=== PATIENT | male | born 1985 | race African-American/Black ===

== ENCOUNTER 2017-02-15 17:30 | Inpatient (IN) | payer OTHER ==
--- NOTE | ~2017-02-15 | DS ---
Unit #: [id number] #: [id number] Patient: DAMON RODRIGUEZ [id number] [place] [address] [id number] I MR#: [id number] NAME: DAMON RODRIGUEZ ROOM: 82 Age: 31 Sex: M Admission Date: 02/15/2017 : 1985 Discharge Date: 02/18/2017 Attending Physician: Luis Felipe Mcallister M.D. [facility] DISCHARGE SUMMARY REASON FOR ADMISSION Depression. DIAGNOSTIC STUDIES LABORATORY RESULTS: Unremarkable. HOSPITAL COURSE The patient was admitted to inpatient unit on 02/15/2017 and discharged on 02/18/2017. The patient was treated on the inpatient unit with group therapy, individual therapy, and medication management. The patient responded well with the above modalities of treatment. Subsequently, the patient was discharged with a plan to follow up in outpatient program. DISCHARGE MEDICATIONS Prozac 20 mg daily for depression and Zyprexa 10 mg daily for psychosis. DISCHARGE DIAGNOSES Psychiatric: Bipolar mood disorder, not otherwise specified, currently in mixed state, F31.89. Secondary diagnosis: Deferred. Medical diagnosis: None. Stressors: Psychosocial stressors. DISCHARGE INSTRUCTIONS The patient is to follow up in outpatient clinic as per social work assistant. CONDITION ON DISCHARGE The patient is pleasant and cooperative. Denied any psychotic symptom or any suicidal ideation. PROGNOSIS Guarded. DIET AND ACTIVITY As tolerated. Dictated by... Luis Felipe Mcallister M.D. Unit #: [id number] #: [id number] Patient: DAMON RODRIGUEZ SZC/modl TD: 02/18/2017 22:28 JOB #: [id number] DISCHARGE SUMMARY Page 1 of 1 X Luis Felipe Mcallister MD X DISCHARGE SUMMARY
--- NOTE | ~2017-02-15 | PN ---
Unit #: [id number] #: [id number] Patient: DAMON TIERNEY [id number] [facility] [address] [place] [address] [id number] MR#: [id number] NAME: DAMON TIERNEY ROOM: P182 Age: 31 Sex: M Admission Date: 02/15/2017 : 1985 Attending Physician: Luis Felipe Mcallister M.D. Admitting Physician: Luis Felipe Mcallister M.D. Primary Care Physician: [facility] PROGRESS NOTES DATE OF SERVICE: 02/17/2017 DISCUSSION Damon Tierney is a 31-year-old male, seen on 02/17/2017. The patient interviewed, chart reviewed, and obtained information from nursing staff. The patient was compliant and cooperative. Mood was sad, dysphoric, flat affect, withdrawn, isolative, guarded. Tolerating medication fairly well. Complete review of systems unremarkable. MENTAL STATUS EXAMINATION General appearance, the patient dressed casually. Attention span and concentration, fair. Oriented in place and person. Mood and affect, labile. Speech, monotone. Thought process, concrete. Denied any thoughts of harming self or others or any psychotic symptom. Recent and remote memory, poor. Insight and judgment, poor. DIAGNOSES 1. Psychosis, not otherwise specified. 2. Mood disorder, not otherwise specified. ASSESSMENT AND PLAN Advised to continue with current combination of Prozac, Zyprexa, and trazodone. If needed, consider further adjustment of medication. Dictated by... Eric Malhotra/angi TD: 02/17/2017 19:02 JOB #: [id number] Unit #: [id number] #: [id number] Patient: DAMON TIERNEY [facility] PROGRESS NOTES Page 1 of 1 X Luis Felipe Mcallister MD PROGRESS NOTE
--- NOTE | ~2017-02-15 | HP ---
Unit #: [id number] #: [id number] Patient: DAMON RODRIGUEZ [id number] [place] [address] [id number] I MR#: [id number] NAME: DAMON RODRIGUEZ ROOM: P180 Age: 31 Sex: M Admission Date: 02/15/2017 : 1985 Attending Physician: Luis Felipe Mcallister M.D. Admitting Physician: Luis Felipe Mcallister M.D. Primary Care Physician: [facility] HISTORY AND PHYSICAL HISTORY OF PRESENT ILLNESS Damon is a 31 year old admitted to [facility] with depression and verbalizing wanting to hurt himself. PAST MEDICAL HISTORY Nothing significant. PAST SURGICAL HISTORY Nothing reported. ALLERGIES No known drug allergies. SOCIAL HISTORY Smokes one pack per day. Denies alcohol and illicit drug use. FAMILY HISTORY Medically noncontributory. REVIEW OF SYSTEMS CONSTITUTIONAL: No fever or chills. HEENT: Denies any sore throat, ear pain or runny nose. CARDIOVASCULAR: Denies chest pain, irregular heart rhythm or palpitations. CHEST: Denies shortness of breath or cough. No hemoptysis. GASTROINTESTINAL: Denies nausea, vomiting, diarrhea or chronic constipation. ENDOCRINE: Denies history of increased thirst or urination. No recent significant weight loss or gain. GENITOURINARY: Denies dysuria, frequency, or hematuria. SKIN: Denies any rashes. HEMATOLOGIC: Denies history of increased bleeding or bruising. MUSCULOSKELETAL: Denies any hot, swollen joints. No generalized muscle pain. NEUROLOGIC: Denies problems with vision or speech. No frequent, severe headaches. No numbness, tingling or weakness in any extremities. Denies loss of bladder or bowel control. CURRENT MEDICATIONS 1. Prozac 20 mg daily 2. Zyprexa 10 mg q.h.s. 3. Trazodone p.r.n. 4. Milk of Magnesia p.r.n. Unit #: [id number] #: [id number] Patient: DAMON RODRIGUEZ 5. Maalox p.r.n. 6. Tylenol p.r.n. 7. Nicotine patch 14 mg daily PHYSICAL EXAMINATION GENERAL: Alert, well-nourished, in no apparent distress. VITAL SIGNS: Blood pressure 120/78, heart rate 66, respirations 16, temperature 98.6. WEIGHT: 189 pounds. HEIGHT: 5'7". SKIN: Warm and dry without rash or lesion. HEENT: Normocephalic. TMs not viewed. Oral and nasal passages clear. Conjunctivae clear. Pupils equal, round and reactive to light and accommodation. Extraocular movements intact. NECK: Supple without lymphadenopathy or thyromegaly. HEART: Regular rate and rhythm without murmur. LUNGS: Clear. ABDOMEN: Soft, nontender. : Not done. EXTREMITIES: No evidence of cyanosis, clubbing or edema. Moves all extremities without focal deficit. NEUROLOGICAL: Grossly within normal limits. Cranial Nerves: II: Visual perez are intact. III, IV AND : Extraocular movements are intact. Pupils are equal, round and reactive to light. V: Facial sensation is grossly normal. VII: Facial movements and expression are normal. VIII: Auditory acuity grossly intact. IX, X: Uvula is midline. Phonation is normal. XI: Patient shrugs shoulders and turns head normally. XII: Tongue protrudes in the midline. Sensory and Motor Function: Sensory and motor sensation is grossly normal. Motor: moves all extremities well. Coordination: Gait is normal. Deep Tendon Reflexes: Intact. IMPRESSION Psychiatric admission. RECOMMENDATIONS PSYCHIATRIC: Per psychiatrist. MEDICAL: I see no contraindications to participating in facility's activities. MEDICAL PROGNOSIS Good. MEDICAL CONDITION Stable. Dictated by... Briana Boyd P.A.-C. for Eric Montes/jatin Unit #: [id number] #: [id number] Patient: DAMON RODRIGUEZ TD: 02/16/2017 19:44 JOB #: [id number] HISTORY AND PHYSICAL X Briana Boyd HISTORY AND PHYSICAL
--- NOTE | ~2017-02-15 | PA ---
Unit #: [id number] #: [id number] Patient: DAMON TIERNEY [id number] [place] [address] [id number] MR#: [id number] NAME: DAMON TIERNEY ROOM: P182 Age: 31 Sex: M Admission Date: 02/15/2017 : 1985 Date of Assessment: 02/16/2017 Attending Physician: Luis Felipe Mcallister M.D. Admitting Physician: Luis Felipe Mcallister M.D. Primary Care Physician: -[facility] Family PSYCHIATRIC ASSESSMENT INFORMANT The patient reliability, fair; chart reliability, good. CHIEF COMPLAINT Depression. HISTORY OF PRESENT ILLNESS Mr. Damon Tierney is a 31-year-old male, seen on with the above-mentioned complaint. The patient has a history of previous admission in 2007 diagnosed with bipolar mood disorder at that time. The patient reported I was talking with my family and they said it would be good if I come here. The patient appeared confused and difficulty articulating thoughts, thought blocking, guarded paranoid. The patient denied any use of drugs or alcohol. The patient lives at home with grandmother and uncle. The patient's family concerned about the patient's behavior. The patient reported that he is having mental congestion, thoughts mixed-up, guarded paranoid. The patient reported trouble staying asleep, seeing things, disorganized thought process, guarded paranoid. The patient was treated in 2007 for bipolar disorder in the past, currently on no psychotropic medication, currently denied any thoughts of harming self or others, but guarded paranoid, needing inpatient admission at this time for psychiatric stabilization. PAST PSYCHIATRIC HISTORY Remarkable for history of inpatient treatment in the past. Currently on no medication. FAMILY AND SOCIAL HISTORY The patient lives with grandmother. No history of any abuse. Family history is unknown at this time. MEDICAL HISTORY Unremarkable for any chronic medical illness. Musculoskeletal; muscle strength and tone, no atrophy or abnormal movement. Gait normal. MEDICATION HISTORY None. ALLERGIES No known drug allergies. SUBSTANCE ABUSE HISTORY None. Unit #: [id number] #: [id number] Patient: DAMON TIERNEY REVIEW OF SYSTEMS HEENT: Eyes, clear. Ears, nose, mouth, and throat; clear. CARDIOVASCULAR: Unremarkable. RESPIRATORY: Unremarkable. GI: Unremarkable. : Unremarkable. SKIN: Unremarkable. LYMPH NODE: Unremarkable. NEUROLOGIC: Unremarkable. ENDOCRINE: Unremarkable. HEMATOLOGIC: Unremarkable. ALLERGIC/IMMUNOLOGIC: Unremarkable. MUSCULOSKELETAL: Muscle strength and tone, no atrophy or abnormal movement. Gait normal. MENTAL STATUS EXAMINATION CONSTITUTIONAL: Measurement of vital signs; temperature is 98.7, pulse 76, respirations 17, blood pressure 112/72, height 5 feet 7 inches, and weight 189 pounds. GENERAL APPEARANCE: The patient dressed casually. No facial deformity noted. MUSCULOSKELETAL: Please see above. PSYCHIATRIC EXAMINATION Description of speech; regular rate, normal volume, but thought blocking. Description of thought process, circumstantial. Description of association, guarded paranoid. Reported hallucination, visual hallucination, auditory hallucination, but no command hallucination. Denied any thoughts of harming self or others. Description of the patient's judgment, concerning everyday activity, poor. Social situation, poor. Concerning psychiatric condition, poor. Complete mental status examination; oriented in time, place, and person. Attention span and concentration, poor. Language, able to name object, repeat phrases. Fund of knowledge, poor. Vocabulary, poor. Mood and affect, sad and dysphoric. Insight and judgment, fair to poor. ASSETS AND LIABILITIES Assets; the patient is articulate, able to take care of his ADL. Liability; history of depression, bipolar disorder. ADMITTING DIAGNOSES Psychiatric: 1. Psychosis, not otherwise specified, F29.0. 2. Rule out bipolar mood disorder, currently in mixed state, F31.89. Secondary diagnosis: Deferred. Medical diagnosis: None. Stressors: Psychosocial stressors. PSYCHIATRIC PLAN, TREATMENT GOAL, AND DISCHARGE PLAN 1. Advised to admit the patient on the inpatient unit. Provide safe, supportive, and structured environment. 2. Ordered labs; CBC, CMP, UA, and UDS. 3. Precaution for psychosis and self-harm. 4. Advised to start the patient on Prozac 20 mg daily, Zyprexa 10 mg at Unit #: [id number] #: [id number] Patient: DAMON TIERNEY bedtime for depression and psychosis, trazodone 75 mg q.h.s. p.r.n. for sleep. The patient to attend all the programing group therapy, individual therapy, and medication management. If needed, consider further adjustment of medication. DISCHARGE PLAN Plan to stabilize the patient and consider followup in outpatient program. ESTIMATED LENGTH OF STAY 5 days. Dictated by... Eric Malhotra/angi TD: 02/17/2017 03:31 JOB #: [id number] PSYCHIATRIC ASSESSMENT Page 1 of 1 X Luis Felipe Mcallister MD PSYCHIATRIC ASSESSMENT
--- NOTE | ~2017-02-15 | PN ---
Unit #: [id number] #: [id number] Patient: DAMON TIERNEY [id number] [facility] [address] [place] [address] [id number] I MR#: [id number] NAME: DAMON TIERNEY ROOM: 82 Age: 31 Sex: M Admission Date: 02/15/2017 : 1985 Attending Physician: Luis Felipe Mcallister M.D. Admitting Physician: Luis Felipe Mcallister M.D. Primary Care Physician: [facility] PROGRESS NOTES DATE OF SERVICE 02/16/2017 DISCUSSION Damon Tierney is a 31-year-old male seen on 02/16/2017. The patient interviewed, chart reviewed. Obtained information from nursing staff. The patient was compliant, cooperative. Mood sad, dysphoric, withdrawn, isolative, guarded. Thoughts are disorganized. Vital signs stable, 98.4, 66, 120/78. The patient continues to be attending to internal stimuli. Complete Review of Systems: Unremarkable. MENTAL STATUS EXAMINATION General Appearance: The patient dressed casually. Attention span, concentration: Poor. Orientation in place. Mood and affect labile. Speech: Monotone. Thought process: [place], guarded, paranoid. Recent and remote memory: Poor. Insight and judgment: Poor. DIAGNOSES 1. Psychosis not otherwise specified. 2. Rule out bipolar mood disorder. ASSESSMENT/PLAN Advised to continue with current medication, combination of Zyprexa and Prozac. If needed, consider further adjustment of medication. Dictated by... Eric Malhotra/job TD: 02/17/2017 10:41 JOB #: [id number] Unit #: [id number] #: [id number] Patient: DAMON TIERNEY PROGRESS NOTES Page 1 of 1 X Luis Felipe Mcallister MD X PROGRESS NOTE
[2017-02-16 09:28] LABS: BASOPHIL% 0.2 % (0-2.5); EOSINOPHIL# 0.1 X10e3 (0-0.7); EOSINOPHIL% 1.9 % (0.0-7.0); HEMATOCRIT 45.5 % (38.0-50.0); HEMOGLOBIN 15.3 gm/dL (13.0-16.0); LYMPHOCYTE# 1.8 X10e3 (1.0-3.5); LYMPHOCYTE% 47.2 % (17.0-45.0); MEAN CELL VOLUME 93.7 FL (83-96); MEAN CORPUSCULAR HEMOGLOBIN 31.5 PG (28-34); MEAN CORPUSCULAR HGB CONC 33.6 g/dL (30-36); MEAN PLATELET VOLUME 8.6 FL (6.5-11.5); MONOCYTE# 0.4 X10e3 (0-1.0); MONOCYTE% 10.8 % (3.0-12.0); NEUTROPHIL# 1.6 X10e3 (1.5-7.1); NEUTROPHIL% 39.9 % (40-75); PLATELET COUNT 200 X10e3 (140-420); RED BLOOD COUNT 4.86 X10e (3.90-5.60); RED CELL DISTRIBUTION WIDTH 12.7 % (11.0-15.5); WHITE BLOOD COUNT 3.9 X10e3 (4.0-10.5)
[2017-02-16 09:30] LABS: DIFF IND NO
[2017-02-16 09:54] LABS: THYROID STIMULATING HORMONE 1.17 uIU/ml (0.34-5.60)
[2017-02-16 10:01] LABS: FREE THYROXIN (T4) 0.94 ng/dL (0.58-1.64)
[2017-02-16 10:03] LABS: ALBUMIN SERUM 4.2 g/dL (3.5-5.0); ALKALINE PHOSPHATASE 43 U/L (32-92); ALT (SGPT) 18 U/L (10-40); AST (SGOT) 16 U/L (10-42); BILIRUBIN,TOTAL 0.7 mg/dL (0.2-2.0); BLOOD UREA NITROGEN 16 mg/dL (9-23); CALCIUM SERUM 9.6 mg/dL (8.4-10.2); CARBON DIOXIDE 27 mmol/L (22-31); CHLORIDE 105 mmol/L (100-111); GLOM FILT RATE Estimated ABOVE60 mL/min (>60); GLUCOSE FASTING 78 mg/dL (70-110); POTASSIUM 4.3 mmol/L (3.5-5.1); SODIUM 141 mmol/L (135-145)
[2017-02-17 09:42] LABS: URINE APPEARANCE TURBID; URINE BILIRUBIN NEG (NEG); URINE BLOOD NEG (NEG); URINE COLOR YELLOW; URINE GLUCOSE NEG (NEG); URINE KETONE NEG (NEG); URINE LEUKOCYTE ESTERASE NEG (NEG); URINE NITRATE NEG (NEG); URINE PH 7.5 (5-8); URINE PROTEIN NEG (NEG); URINE SPECIFIC GRAVITY 1.022 (1.003-1.035)
[2017-02-17 10:17] LABS: AMPHETAMINE NEG (NEG); BARBITURATES NEG (NEG); BENZODIAZEPINES NEG (NEG); COCAINE NEG (NEG); MARIJUANA NEG (NEG); OPIATES NEG (NEG); TRICYCLIC ANTIDEPRESSANTS NEG (NEG); U METHADONE NEG (NEG)
== END 2017-02-18 12:54 | disposition home or self-care (01) | DRG 885 ==
LOC: P1E 17:30
PROVIDERS: Psychiatry & Neurology Psychiatry
DX: F29 Unspecified psychosis not due to a substance or known physiological condition (principal); F31.89 Other bipolar disorder; F17.200 Nicotine dependence, unspecified, uncomplicated
CPT/HCPCS: 80053; 80307; 81003; 84439; 84443; 85025

== ENCOUNTER 2017-03-06 11:43 | Inpatient (IN) | payer OTHER ==
--- NOTE | ~2017-03-06 | DS ---
Unit #: [id number] #: [id number] Patient: DAMON RODRIGUEZ [id number] [facility] [address] [place] [address] [id number] MR#: [id number] NAME: DAMON RODRIGUEZ ROOM: [facility] Age: 31 Sex: M Admission Date: 03/06/2017 : 1985 Discharge Date: 03/09/2017 Attending Physician: Luis Felipe Mcallister M.D. Primary Care Physician: Generic Doctor Not In System DISCHARGE SUMMARY REASON FOR ADMISSION Psychosis. DIAGNOSTIC STUDIES LABORATORY RESULTS: Unremarkable. HOSPITAL COURSE The patient was admitted to inpatient unit on 03/06/2017 and discharged on 03/09/2017. The patient was treated with group therapy, individual therapy, and medication management. The patient responded well with the above modalities of treatment, but still having residual symptoms. Subsequently, the patient was discharged as the patient requested for discharge. The patient at this time is not suicidal or homicidal, but still having residual psychotic symptom. Subsequently, the patient was discharged with a plan to follow up in [facility] level of care. DISCHARGE MEDICATIONS Prozac 20 mg daily for mood symptom, Cogentin 1 mg b.i.d. for EPS symptom, and Abilify 15 mg b.i.d. for psychosis. DISCHARGE DIAGNOSES Psychiatric: Schizophrenia, chronic paranoid type, F20.0. Secondary diagnosis: Deferred. Medical diagnosis: None. Stressors: Psychosocial stressors. DISCHARGE INSTRUCTIONS The patient is to follow up in outpatient clinic as per social service coordinator. CONDITION ON DISCHARGE The patient was pleasant and cooperative. Denied any psychotic symptom or any suicidal ideation. PROGNOSIS Guarded. DIET AND ACTIVITY As tolerated. Unit #: [id number] #: [id number] Patient: DAMON RODRIGUEZ Dictated by... Luis Felipe Mcallister M.D. SZC/mikhaill TD: 03/09/2017 18:21 JOB #: [id number] DISCHARGE SUMMARY Page 1 of 1 X Luis Felipe Mcallister MD X DISCHARGE SUMMARY
--- NOTE | ~2017-03-06 | PN ---
Unit #: [id number] #: [id number] Patient: DAMON RODRIGUEZ [id number] [facility] [address] [place] [address] [id number] MR#: [id number] NAME: DAMON RODRIGUEZ ROOM: [facility] Age: 31 Sex: M Admission Date: 03/06/2017 : 1985 Attending Physician: Luis Felipe Mcallister M.D. Admitting Physician: Luis Felipe Mcallister M.D. Primary Care Physician: Generic Doctor Not In System [facility] PROGRESS NOTES DATE OF SERVICE: 03/08/2017 JOB NOTE: VERIFY WORK TYPE DISCUSSION Damon is a 31-year-old male, seen on 03/08/2017. The patient continues to have disorganized behavior, disorganized thought process, guarded, paranoid, unable to give any reliable information, answering question with yes or no. The patient has been compliant with medication. No aggression. REVIEW OF SYSTEMS Complete review of systems unremarkable. MENTAL STATUS EXAMINATION General appearance, the patient dressed casually in hospital attire. Attention span and concentration, poor. Orientation in self and place. Mood and affect, labile and flat. Speech, monotone. Thought process, disorganized behavior. Recent and remote memory, poor. Insight and judgment, poor. DIAGNOSIS Schizophrenia, chronic paranoid type. ASSESSMENT AND PLAN Advised to continue with current medication with a plan to convert Abilify to long-acting Abilify Maintena injection. Dictated by... Eric Malhotra/angi TD: 03/08/2017 11:51 JOB #: [id number] Unit #: [id number] #: [id number] Patient: DAMON RODRIGUEZ [facility] PROGRESS NOTES Page 1 of 1 X Luis Felipe Mcallister MD PROGRESS NOTE
--- NOTE | ~2017-03-06 | HP ---
Unit #: [id number] #: [id number] Patient: DAMON RODRIGUEZ [id number] [facility] [address] [place] [address] [id number] I MR#: [id number] NAME: DAMON RODRIGUEZ ROOM: P255 Age: 31 Sex: M Admission Date: 03/06/2017 : 1985 Attending Physician: Luis Felipe Mcallister M.D. Admitting Physician: Luis Felipe Mcallister M.D. Primary Care Physician: Generic Doctor Not In System HISTORY AND PHYSICAL HISTORY OF PRESENT ILLNESS Damon is a 31 year old admitted to [address] [place] [address] with depression. He was just discharged from this facility. The patient was seen and H and P dated 02/16/2017 was reviewed. This is current. No changes. Please see H and P dated 02/16/2017. Dictated by... Briana Boyd P.A.-C. for Eric Montes/job TD: 03/07/2017 08:42 JOB #: [id number] HISTORY AND PHYSICAL Page 1 of 1 X Briana Boyd HISTORY AND PHYSICAL
--- NOTE | ~2017-03-06 | PA ---
Unit #: [id number] #: [id number] Patient: DAMON RODRIGUEZ [id number] [facility] [address] [place] [address] [id number] MR#: [id number] NAME: DAMON RODRIGUEZ ROOM: P266 Age: 31 Sex: M Admission Date: 03/06/2017 : 1985 Date of Assessment: Attending Physician: Luis Felipe Mcallister M.D. Admitting Physician: Luis Felipe Mcallister M.D. PSYCHIATRIC ASSESSMENT INFORMANTS The patient reliability, poor informant and chart reliability, good. CHIEF COMPLAINT "I don't know." HISTORY OF PRESENT ILLNESS Mr. Steve is a 31-year-old male, who was in IOP level of care, stepped up from IOP to inpatient level of care due to worsening of his behavior and putting himself in a dangerous situation. The patient lives with his grandmother. He has a diagnosis of schizophrenia/bipolar disorder. The patient was brought to the [facility] by family and having very difficult time articulating his symptom, having thought blocking, paranoia, poor insight, and poor judgment. The patient reports "mental congestion." The patient having disorganized thought process, thought blocking, and paranoia. The patient reports living with grandmother. Grandmother reports that he remains seclusive at home, staying awake at night and sleeping during the day. According to her, the patient is quiet, isolative, guarded, and flat affect. He has been seeing things, having visual hallucination, disorganized behavior, disorganized thought process, and some confusion. Needing inpatient admission at this time for psychiatric stabilization. PAST PSYCHIATRIC HISTORY Remarkable for history of previous admission to inpatient on 08/19/2008 with similar complaints of psychosis, not otherwise specified and bipolar mood disorder/schizophrenia and last one was in 01/2017 with similar complaints. MEDICAL HISTORY Unremarkable for any chronic medical condition. Musculoskeletal; muscle strength and tone, no atrophy or abnormal movement. Gait normal. MEDICATION HISTORY The patient is on Abilify 10 mg b.i.d. and Prozac 20 mg daily. ALLERGIES No known drug allergies. SUBSTANCE ABUSE HISTORY None. REVIEW OF SYSTEMS Unit #: [id number] #: [id number] Patient: DAMON RODRIGUEZ HEENT: Eyes, clear. Ears, nose, mouth, and throat; clear. CARDIOVASCULAR: Unremarkable. RESPIRATORY: Unremarkable. GI: Unremarkable. : Unremarkable. SKIN: Unremarkable. LYMPH NODE: Unremarkable. NEUROLOGIC: Unremarkable. ENDOCRINE: Unremarkable. HEMATOLOGIC: Unremarkable. ALLERGIC/IMMUNOLOGIC: Unremarkable. MUSCULOSKELETAL: Muscle strength and tone, no atrophy or abnormal movement. Gait normal. MENTAL STATUS EXAMINATION CONSTITUTIONAL: Measurement of vital signs; temperature 98.4, heart rate 80, respiratory rate 18, and blood pressure 112/70. Height 5 feet 7 inches and weight 190 pounds. GENERAL APPEARANCE: The patient dressed casually. The patient did not show any facial deformity. MUSCULOSKELETAL: Please see above. PSYCHIATRIC EXAMINATION Description of speech is slow and long pauses. Description of thought process, circumstantial. Description of association; guarded, paranoid, thought blocking, paranoia, disorganized thought process, and disorganized behavior, but denied any thoughts of harming self or others. Description of the patient's judgment: Concerning everyday activity, poor. Social situation, poor. Concerning psychiatric condition, poor. Complete mental status examination; oriented in place and person. Attention span and concentration, poor. Language, able to name object and repeat phrases. Fund of knowledge, aware of current event and passive vocabulary, fair to poor. Mood and affect, sad and dysphoric. Insight and judgment, poor. ASSETS AND LIABILITIES Assets, the patient is articulate and able to take care of his ADL. Liability, history of depression and psychosis. 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 Secondary diagnosis: Deferred. Medical diagnosis: None. Stressors: Psychosocial stressors. PSYCHIATRIC PLAN AND TREATMENT GOAL AND DISCHARGE PLAN 1. Advised to admit the patient on the inpatient unit. Provide safe, supportive, and structured environment. 2. Ordered labs; CBC, CMP, UA, and UDS. 3. Advised to continue with current medication with a plan to increase Abilify to 15 mg b.i.d. and add Cogentin 1 mg b.i.d. with a plan to switch the patient from Abilify to long-acting injectable Abilify Maintena 400 mg every monthly. The patient to attend all the programing, group therapy, individual therapy, and medication management. Unit #: [id number] #: [id number] Patient: DAMON RODRIGUEZ TREATMENT GOAL To attain euthymic mood, gain insight into his problem, and learn coping skills. DISCHARGE PLAN Plan to stabilize the patient and consider followup in outpatient program. ESTIMATED LENGTH OF STAY 2 weeks. Dictated by... Eric Malhotra/angi TD: 03/08/2017 11:33 JOB #: [id number] PSYCHIATRIC ASSESSMENT Page 1 of 1 X Luis Felipe Mcallister MD X PSYCHIATRIC ASSESSMENT
[2017-03-07 11:20] LABS: BASOPHIL% 0.4 % (0-2.5); EOSINOPHIL# 0.1 X10e3 (0-0.7); EOSINOPHIL% 2.5 % (0.0-7.0); HEMATOCRIT 45.8 % (38.0-50.0); HEMOGLOBIN 15.1 gm/dL (13.0-16.0); LYMPHOCYTE# 1.9 X10e3 (1.0-3.5); LYMPHOCYTE% 42.8 % (17.0-45.0); MEAN CELL VOLUME 94.1 FL (83-96); MEAN CORPUSCULAR HGB CONC 32.9 g/dL (30-36); MEAN PLATELET VOLUME 8.5 FL (6.5-11.5); MONOCYTE# 0.4 X10e3 (0-1.0); MONOCYTE% 9.9 % (3.0-12.0); NEUTROPHIL# 1.9 X10e3 (1.5-7.1); NEUTROPHIL% 44.4 % (40-75); PLATELET COUNT 190 X10e3 (140-420); RED BLOOD COUNT 4.86 X10e (3.90-5.60); WHITE BLOOD COUNT 4.4 X10e3 (4.0-10.5)
[2017-03-07 11:42] LABS: DIFF IND NO
[2017-03-07 13:00] LABS: URINE APPEARANCE CLEAR; URINE BILIRUBIN NEG (NEG); URINE BLOOD NEG (NEG); URINE COLOR YELLOW; URINE GLUCOSE NEG (NEG); URINE KETONE NEG (NEG); URINE LEUKOCYTE ESTERASE NEG (NEG); URINE NITRATE NEG (NEG); URINE PROTEIN NEG (NEG); URINE SPECIFIC GRAVITY 1.017 (1.003-1.035); URINE UROBILINOGEN 0.2 MG/DL (NEG)
[2017-03-07 13:21] LABS: THYROID STIMULATING HORMONE 0.54 uIU/ml (0.34-5.60)
[2017-03-07 13:26] LABS: AMPHETAMINE NEG (NEG); BARBITURATES NEG (NEG); BENZODIAZEPINES NEG (NEG); COCAINE NEG (NEG); MARIJUANA NEG (NEG); OPIATES NEG (NEG); TRICYCLIC ANTIDEPRESSANTS NEG (NEG); U METHADONE NEG (NEG)
[2017-03-07 13:29] LABS: FREE THYROXIN (T4) 0.61 ng/dL (0.58-1.64)
[2017-03-07 13:33] LABS: ALBUMIN SERUM 4.1 g/dL (3.5-5.0); BILIRUBIN,TOTAL 0.9 mg/dL (0.2-2.0); BUN/CREATININE RATIO 13.33; CALCIUM SERUM 9.4 mg/dL (8.4-10.2); CREATININE SERUM 0.9 mg/dL (0.6-1.4); GLOM FILT RATE Estimated 133.3 mL/min (>60); POTASSIUM 4.1 mmol/L (3.5-5.1); PROTEIN TOTAL SERUM 6.9 g/dL (6.0-8.3)
== END 2017-03-09 15:30 | disposition home or self-care (01) | DRG 885 ==
LOC: P2L 11:43
PROVIDERS: Psychiatry & Neurology Psychiatry
DX: F20.0 Paranoid schizophrenia (principal)
CPT/HCPCS: 80053; 80307; 81003; 84439; 84443; 85025